=== PATIENT | male | born 1995 | race African-American/Black ===

== ENCOUNTER 2019-12-07 10:59 | Emergency (ER) | payer MEDICAID ==
[~2019-12-07] VITALS: Ht 188 cm; Wt 84.8 kg
[2019-12-07 11:30] VITALS: BP 127/81
[2019-12-07] MEDS ORDERED: PANTOPRAZOLE 40 MG/10 ML VIAL INJ IV STA (11:31)
[2019-12-07] MEDS ORDERED: SODIUM CHLORIDE 0.9% 1,000 ML IVB ONE (11:31)
[2019-12-07] MEDS ORDERED: MORPHINE SULFATE 4 MG/ML SYR/VIAL IV ONE (11:45)
[2019-12-07] MEDS ORDERED: PROCHLORPERAZINE EDISYLATE 5 MG/ML 2ML VIAL IV ONE (11:45)
[2019-12-07 12:07] LABS: Basophils # (auto) 0 10 ^3/uL (0-0.2); Eosinophils # (auto) 0 10 ^3/uL (0-0.8); Eosinophils % (auto) 0.8 % (0.0-7.0); Hematocrit 43.2 % (41.0-53.0); Lymphocytes # (auto) 0.9 10 ^3/uL (0.4-5.4); Monocytes # (auto) 0.3 10 ^3/uL (0-1.3); Monocytes % (auto) 5.4 % (0.0-12.0); White Blood Cell 4.9 10^3/uL (4.4-10.8)
[2019-12-07 12:09] LABS: Basophils % (auto) 0.3 % (0.0-2.0); Hemoglobin 14.1 g/dL (13.5-17.5); Lymphocytes % (auto) 19.4 % (10.0-50.0); Mean Corpuscular Hemoglobin 25.1 pg (28.0-32.0); Mean Corpuscular Hgb Conc. 32.6 g/dL (32.0-36.0); Mean Corpuscular Volume 76.9 fL (80.0-100.0); Neutrophils # (auto) 3.6 10 ^3/uL (1.6-8.6); Neutrophils % (auto) 74.1 % (37.0-80.0); Nucleated Red Blood Cells % 0.1 %; Platelet Count (auto) 147 10^3/uL (140-450); Red Blood Cells 5.61 10^6/uL (4.5-5.90); Red Cell Distribution Width 16.9 % (11.8-14.3)
[2019-12-07 12:28] LABS: Albumin 4.2 g/dL (3.4-5.0); Calcium 9.6 mg/dL (8.5-10.1); Potassium 3.8 mmol/L (3.5-5.1)
[2019-12-07 12:32] LABS: BUN/Creatinine Ratio 7.8; Bilirubin, Total 0.4 mg/dL (0.2-1.0)
== END 2019-12-07 13:37 | disposition home or self-care (01) ==
LOC: ER 10:59
DX: R11.2 Nausea with vomiting, unspecified (principal); R19.7 Diarrhea, unspecified; R10.84 Generalized abdominal pain; E86.0 Dehydration; F12.10 Cannabis abuse, uncomplicated
CPT/HCPCS: 36415; 80053; 83690; 85025; 96361; 96374; 96375; 99284; C9113; J0780; J2270